=== PATIENT | male | born 1955 | race Caucasian/White ===

== ENCOUNTER 2019-01-07 09:40 | Inpatient (IN) | payer OTHER ==
[~2019-01-07] VITALS: Ht 154.9 cm; Wt 75.7 kg
[2019-01-07 09:57] VITALS: BP 133/68
--- NOTE | 2019-01-07 10:04 | NUR ---
PT AMBULATED TO ER BED 02
--- NOTE | 2019-01-07 10:13 | NUR ---
DR. JAMISON AT BEDSIDE TO EVALUATE PT.
--- NOTE | 2019-01-07 10:31 | NUR ---
LAB AT BEDSIDE TO DRAW BLOOD. EKG IN PROGRESS.
--- NOTE | 2019-01-07 10:35 | NUR ---
PCXR AT BEDSIDE
--- NOTE | 2019-01-07 10:44 | NUR ---
PT SLOVENIAN SPEAKER, A&OX4M, BREATHING EVEN AND UNLABORED. NSR ON MONITOR, SKIN WARM, PINK, AND DRY. C/O INTERMITTENT LOW BACK PAIN AND GENERALIZED BODY ACHES, SUBJECTIVE FEVER, AND CHILLS X 8 DAYS. DENIES N/V/D. NO CP/SOB.
[2019-01-07 10:49] LABS: BASOPHILS % (AUTO) 0.1 % (0.0-2.0); EOSINOPHILS % (AUTO) 0.2 % (0.0-4.0); HEMATOCRIT 32.3 % (36-52); HEMOGLOBIN 10.9 g/dL (12.0-18.0); LYMPHOCYTES # (AUTO) 1.5 K/uL (2.0-11.5); LYMPHOCYTES % (AUTO) 7.6 % (20.5-51.1); MEAN CORPUSCULAR HEMOGLOBIN 29 pg (27-31); MEAN CORPUSCULAR HGB CONC 34 g/dL (33-37); MEAN CORPUSCULAR VOLUME 86.8 fL (80-94); MONOCYTES # (AUTO) 1.1 K/uL (0.8-1.0); MONOCYTES % (AUTO) 5.5 % (1.7-9.3); NEUTROPHILS # (AUTO) 17.4 K/uL (1.8-7.7); NEUTROPHILS % (AUTO) 86.6 % (42.2-75.2); PLATELET COUNT (AUTO) 398 K/uL (140-450); RED BLOOD CELL COUNT(AUTO) 3.73 MIL/uL (4.20-6.10); RED CELL DISTRIBUTION WIDTH 13.3 % (11.6-13.7); WHITE BLOOD COUNT (AUTO) 20.1 K/uL (4.8-10.8)
[2019-01-07] MEDS ORDERED: KETOROLAC 60 MG/2 ML VIAL IM ONE (10:50)
[2019-01-07 10:54] LABS: APPEARANCE,URINE CLEAR (CLEAR); BILIRUBIN,URINE NEGATIVE (NEGATIVE); BLOOD, URINE TRACE-L (NEGATIVE); COLOR,URINE YELLOW (YELLOW); LEUKOCYTE ESTERASE ,URINE NEGATIVE (NEGATIVE); NITRITE, URINE NEGATIVE (NEGATIVE); UGLUCOSE NEGATIVE (NEGATIVE)
[2019-01-07 11:14] LABS: RBC,URINE 0-5 /HPF (0-5); WBC,URINE 0-5 /HPF (0-5)
[2019-01-07] MEDS ORDERED: AZITHROMYCIN 500 MG in DEXTROSE 5% 250 ML IV ONE (11:15)
[2019-01-07] MEDS ORDERED: NACL 0.9% 1,000 ML IV ONE (11:15)
[2019-01-07] MEDS ORDERED: OSELTAMIVIR PHOSPHATE 75 MG CAP PO ONE (11:20)
[2019-01-07] MEDS ORDERED: cefTRIAXone 1,000 MG VIAL ONE (11:43)
[2019-01-07] MEDS ORDERED: HYDROcodone/APAP 7.5/325 MG 1 TAB PO PRN (11:45)
[2019-01-07] MEDS ORDERED: ONDANSETRON 4 MG/2 ML VIAL IVP PRN (11:45)
[2019-01-07] MEDS: ACETAMINOPHEN 325 MG TAB PO PRN (12:05)
--- NOTE | 2019-01-07 12:08 | NUR ---
PT HAS BEEN MEDICATED FOR CARRILLO PAIN 02/10
[2019-01-07] MEDS ORDERED: BACL10TA4 PO (12:10)
[2019-01-07] MEDS ORDERED: AMOX500C25 PO (12:12)
[2019-01-07] MEDS ORDERED: IBUP200C97 PO (12:12)
--- NOTE | 2019-01-07 12:18 | NUR ---
HEADACHE PAIN DECREASED 2/10. BREATHING EVEN AND UNLABORED. LUNG SOUNDS CTAB, NSR ON MONITOR.
[2019-01-07 12:26] LABS: ALBUMIN 2.4 g/dL (3.4-5.0); ANION GAP 11.4 (8-16); CARBON DIOXIDE 25.2 mmol/L (21-32); CREATININE 0.8 mg/dL (0.7-1.3); POTASSIUM 3.6 mmol/L (3.5-5.1); TOTAL BILIRUBIN 0.3 mg/dL (0.0-1.0)
[2019-01-07] MEDS ORDERED: AZITHROMYCIN 500 MG INJ VIAL IV ONE (12:58)
[2019-01-07 13:15] VITALS: BP 127/46
--- NOTE | 2019-01-07 13:15 | NUR ---
Patient will be admitted to care of DR. DIEZ. Admited to TELE. Will go to room 125A. Belongings list completed. Report to CHARGE NURSE MICHEL ASTUDILLO.
--- NOTE | 2019-01-07 13:15 | NUR ---
PATIENT WAS TRANSFERRED FROM ED IN [facility]. REPORT WAS GIVEN AT BEDSIDE. VS WAS TAKEN. MRSA WAS SWABBED. LAB TECH WAS PLACED. PATIENT WAS AWAKE, ALERT. RESPIRATION EVEN, UNLABOR ON 2L NC. SKIN DRY AND WARM. IV PATENT AND INTACT. DENIED PAIN, SOB, N/V AT THIS TIME. PATIENT WAS ORIENTED TO ROOM, STAFF, AND CALL LIGHT. PLAN OF CARE WAS DISCUSSED WITH PATIENT. BED AT LOW POSITION, SIDE RAILS UP. CALL LIGHT WITHIN REACH.
[2019-01-07] MEDS: NACL 0.9% 1,000 ML IV SCH (13:35)
[2019-01-07 13:56] LABS: PROTHROMBIN TIME 11.1 secs (10.8-13.4)
[2019-01-07 14:05] LABS: BARBITURATE, URINE NEG. ng/ml (NEG <=200); BENZODIAZEPINE, URINE NEG. ng/mL (NEG <=200); CANNABINOID, URINE NEG. ng/mL (NEG <=50); COCAINE, URINE NEG. ng/mL (NEG <=300); OPIATE, URINE NEG. ng/mL (NEG <=2000); PHENCYCLIDINE SCREEN,URINE NEG. ng/mL (NEG <=25)
[2019-01-07 14:14] LABS: FREE T4 (FREE THYROXINE) 1.11 ng/dL (0.76-1.46); MAGNESIUM 1.8 mg/dL (1.8-2.4); PHOSPHORUS 3.4 mg/dL (2.5-4.9); THYROID STIMULATING HORMONE 1.47 uIU/mL (0.34-3.74)
[2019-01-07] MEDS ORDERED: ALBUTEROL SULFATE/IPRATROPIU 3 ML SOL IH PRN (15:20)
--- NOTE | 2019-01-07 15:45 | NUR ---
PATIENT WAS AWAKE, ALERT. RESPIRATION EVEN, UNLABOR ON 2L NC. DENIED PAIN, SOB AT THIS TIME. MD WAS AT BEDSIDE. CALL LIGHT WITHIN REACH
[2019-01-07 16:00] VITALS: BP 106/53
--- NOTE | 2019-01-07 16:56 | NUR ---
PATIENT WAS PLACED ON ROOM AIR, SPO2 94%. WILL CONTINUE TO MONITOR
--- NOTE | 2019-01-07 18:09 | NUR ---
PATIENT WAS AWAKE, ALERT, EATING DINNER COMFORTABLY. RESPIRATION EVEN, UNLABOR ON ROOM AIR. IV PATENT AND INTACT. NO DISTRESS NOTED AT THIS TIME
--- NOTE | 2019-01-07 19:22 | NUR ---
ENDORSEMENT GIVEN TO DEPOSIT REFUND CLERK NURSE. PATIENT IS STABLE AT THIS TIME.
--- NOTE | 2019-01-07 19:23 | NUR ---
RECEIVED BEDSIDE REPORT FROM FARIDA PEARSON. PT IS AAOX4. MAORI SPEAKING. AT BEDSIDE. PT ON ROOM AIR. RESPIRATIONS ARE EQUAL AND UNLABORED. SKIN INTACT. PATIENT IS AMBULATORY. IV ON L HAND 22 IVF PER ORDERS. PLAN OF CARE DISCUSSED WITH PATIENT. CALL LIGHT WITHIN REACH.
--- NOTE | 2019-01-07 19:25 | NUR ---
RECEIVED BEDSIDE REPORT FROM FARIDA PEARSON. PT IS AAO X4. ON ROOM AIR RESPIRATIONS ARE EQUAL AND UNLABORED. PATIENT DX LEFT HUMERUS FX. ARM IS PATRICK WRAPPED. CAP REFILL < 3SEC. PT TO BE NPO AFTER MIDNIGHT. PT SURGERY TOMORROW. PER NURSE NO ORDER FOR CONSENT SURGERY WAS NOT SPECIFIC. PT RECEIVED ONE UNIT OF BLOOD TODAY. SKIN INTACT. OCCULT BLOOD PENDING NO BM TODAY. IV ON R HAND 22G AND RAC 22G IVF PER ORDERS. PLAN OF CARE DISCUSSED. WILL CONTINUE TO MONITOR. Addendum: 01/07/19 at 1934 by Kellen Junior RN WRONG PATIENT.
[2019-01-07 20:00] VITALS: BP 100/54
[2019-01-07] MEDS: DOCUSATE SODIUM 100 MG GELCAP PO SCH (20:09)
--- NOTE | 2019-01-07 20:09 | NUR ---
SCHEDULED MEDICATIONS GIVEN. VITAL SIGNS ARE WITHIN NORMAL LIMITS. WILL CONTINUE TO MONITOR.
--- NOTE | 2019-01-07 22:00 | NUR ---
PATIENT IS SLEEPING COMFORTABLY IN BED. RESPIRATIONS ARE EQUAL AND UNLABORED. SAFETY MEASURES ARE IN PLACE. CALL LIGHT WITHIN REACH.
[2019-01-08] VITALS: BP 112/47
--- NOTE | 2019-01-08 00:26 | NUR ---
VITAL SIGNS ARE WITHIN NORMAL LIMITS. 112/47 HR 67 95% ON ROOM AIR. ALL NEEDS MET AT THIS TIME. CALL LIGHT WITHIN REACH.
--- NOTE | 2019-01-08 02:15 | NUR ---
PATIENT SLEEPING IN BED. NO S/S OF DISTRESS. RESPIRATION EQUAL AND UNLABORED. CALL LIGHT WITHIN REACH.
[2019-01-08 04:00] VITALS: BP 128/65
--- NOTE | 2019-01-08 04:10 | NUR ---
VITAL SIGNS ARE STABLE. PT DENIES CHEST OR SOB. CALL LIGHT WITHIN REACH.
[2019-01-08] MEDS: NACL 0.9% 1,000 ML IV SCH (06:50)
[2019-01-08 06:57] LABS: BASOPHILS % (AUTO) 0.3 % (0.0-2.0); EOSINOPHILS # (AUTO) 0.1 K/uL (0-0.4); EOSINOPHILS % (AUTO) 0.5 % (0.0-4.0); HEMATOCRIT 30.7 % (36-52); HEMOGLOBIN 10.4 g/dL (12.0-18.0); LYMPHOCYTES # (AUTO) 1.3 K/uL (2.0-11.5); LYMPHOCYTES % (AUTO) 9.2 % (20.5-51.1); MEAN CORPUSCULAR HEMOGLOBIN 30 pg (27-31); MEAN CORPUSCULAR HGB CONC 34 g/dL (33-37); MEAN CORPUSCULAR VOLUME 87.4 fL (80-94); MONOCYTES # (AUTO) 0.9 K/uL (0.8-1.0); MONOCYTES % (AUTO) 6.6 % (1.7-9.3); NEUTROPHILS # (AUTO) 11.7 K/uL (1.8-7.7); NEUTROPHILS % (AUTO) 83.4 % (42.2-75.2); PLATELET COUNT (AUTO) 406 K/uL (140-450); RED BLOOD CELL COUNT(AUTO) 3.52 MIL/uL (4.20-6.10); RED CELL DISTRIBUTION WIDTH 13.6 % (11.6-13.7)
--- NOTE | 2019-01-08 07:16 | NUR ---
GAVE BEDSIDE REPORT TO CHRISTA PEARSON. PT ENDORSED IN STABLE CONDITION.
--- NOTE | 2019-01-08 07:20 | NUR ---
PT REPORT RECEIVED AT BEDSIDE FROM BLEACHER OPERATOR NURSE RENEE. PT IS AWAKE AND ALERT, NO S/S OF ANY ACUTE DISTRESS OR SOB. PT IS INDONESIAN SPEAKING ONLY. PT IS ON ROOM AIR, SKIN INTACT. IV SITE NOTED ON THE L FA, 20 G, INFUSING NS 50 ML/HR. PT IS AMBULATORY AND NOT A FALL RISK. PT IS ON A REGULAR DIET. CALL LIGHT IS WITHIN REACH, WILL CONTINUE TO MONITOR.
[2019-01-08 07:40] LABS: ANION GAP 11.9 (8-16); CARBON DIOXIDE 24.3 mmol/L (21-32); CREATININE 0.6 mg/dL (0.7-1.3); MAGNESIUM 1.8 mg/dL (1.8-2.4); PHOSPHORUS 2.8 mg/dL (2.5-4.9); POTASSIUM 4.2 mmol/L (3.5-5.1)
[2019-01-08 07:48] LABS: CHOL/HDL RATIO 4.5 (1-4.5)
[2019-01-08 08:00] VITALS: BP 145/67
--- NOTE | 2019-01-08 08:28 | NUR ---
PATIENT HAS BEEN SCREENED AND CATEGORIZED HIGH NUTRITION RISK. PATIENT WILL BE SEEN WITHIN 1-2 DAYS OF ADMISSION. 01/08/19-01/09/[address]
[2019-01-08] MEDS: PANTOPRAZOLE 40 MG INJ VIAL IVP SCH (10:08)
[2019-01-08] MEDS: DOCUSATE SODIUM 100 MG GELCAP PO SCH ×2 (10:08→20:00)
--- NOTE | 2019-01-08 10:16 | NUR ---
SCHEDULED AM MEDS ADMINISTERED. PT TOLERATED WELL.
--- NOTE | 2019-01-08 10:41 | NUR ---
SPUTUM COLLECTED AND TAKEN TO LAB PER MD ORDER.
[2019-01-08 12:00] VITALS: BP 136/62
[2019-01-08 12:12] LABS: FOLIC ACID 5.2 ng/mL (>3.0)
--- NOTE | 2019-01-08 12:37 | NUR ---
PT EATING LUNCH. NO S/S OF ANY ACUTE DISTRESS AT THIS TIME. WILL CONTINUE TO MONITOR.
[2019-01-08] MEDS: AZITHROMYCIN 250 MG in DEXTROSE 5% 250 ML IV SCH (13:45)
--- NOTE | 2019-01-08 13:51 | NUR ---
01/08/19 RD INITIAL ASSESSMENT COMPLETED PLEASE REFER TO NUTRITION ASSESSMENT UNDER CARE ACTIVITY FOR ESTIMATED NUTRITIONAL NEEDS. 1. CONTINUE REGULAR DIET TOLERATED 2. RD PROVIDED EDUCATION FOR WEIGHT MANAGEMENT AND EDUCATIONAL HANDOUT WITH MENU SAMPLES. PT ACCEPTED 3. RD TO FOLLOW-UP 5-7 DAYS, LOW RISK RAQUEL RANDOLPH, RD
[2019-01-08 16:00] VITALS: BP 124/60
--- NOTE | 2019-01-08 18:05 | NUR ---
PT'S RELATIVES VISITING AT BEDSIDE. PT EATING DINNER AND NO ACUTE DISTRESS OR SOB NOTED. WILL CONTINUE TO MONITOR.
--- NOTE | 2019-01-08 19:17 | NUR ---
RECEIVED BEDSIDE REPORT FROM CHRISTA PERASON. PT IS AAOX4. CAMBODIAN SPEAKING. AND SON AT BEDSIDE. PT ON ROOM AIR. RESPIRATIONS ARE EQUAL AND UNLABORED. SKIN INTACT. PATIENT IS AMBULATORY. IV ON L HAND 22 IVF PER ORDERS. PLAN OF CARE DISCUSSED WITH PATIENT. CALL LIGHT WITHIN REACH.
--- NOTE | 2019-01-08 19:20 | NUR ---
PT ENDORSED TO BLASTING ENTRY SPECIALIST NURSE IN STABLE CONDITION.
[2019-01-08 20:00] VITALS: BP 129/54
--- NOTE | 2019-01-08 20:00 | NUR ---
VITAL SIGNS ARE WITHIN NORMAL LIMITS: 129/54, 70, 94%, 98.5. SCHEDULED MEDICATIONS GIVEN. ANSWERED ALL QUESTIONS AND CONCERNS. SAFETY MEASURES IN PLACE. CALL LIGHT WITHIN REACH.
--- NOTE | 2019-01-08 22:00 | NUR ---
PATIENT IS RESTING COMFORTABLY IN BED. NO S/S OF DISTRESS NOTED. ALL NEEDS MET AT THIS TIME. CALL LIGHT WITHIN REACH. WILL CONTINUE TO MONITOR.
[2019-01-09] VITALS: BP 131/70
--- NOTE | 2019-01-09 00:15 | NUR ---
VITAL SIGNS ARE WITHIN NORMAL LIMITS. NO S/S OF DISTRESS. CALL LIGHT WITHIN REACH.
--- NOTE | 2019-01-09 02:22 | NUR ---
PATIENT IS SLEEPING COMFORTABLY IN BED. RESPIRATIONS ARE EQUAL AND UNLABORED. SAFETY MEASURES ARE IN PLACE. WILL CONTINUE TO MONITOR.
[2019-01-09] MEDS: NACL 0.9% 1,000 ML IV SCH (03:25)
--- NOTE | 2019-01-09 04:00 | NUR ---
VITAL SIGNS ARE WITHIN NORMAL LIMITS. PT DENIES ANY PAIN. ALL NEEDS MET AT THIS TIME. SAFETY MEASURES ARE IN PLACE. WILL CONTINUE TO MONITOR.
[2019-01-09 04:01] VITALS: BP 154/79
[2019-01-09 06:54] LABS: BASOPHILS % (AUTO) 0.1 % (0.0-2.0); EOSINOPHILS % (AUTO) 0.2 % (0.0-4.0); HEMATOCRIT 31.8 % (36-52); HEMOGLOBIN 10.7 g/dL (12.0-18.0); LYMPHOCYTES # (AUTO) 0.9 K/uL (2.0-11.5); LYMPHOCYTES % (AUTO) 5.5 % (20.5-51.1); MEAN CORPUSCULAR HEMOGLOBIN 29 pg (27-31); MEAN CORPUSCULAR HGB CONC 34 g/dL (33-37); MONOCYTES # (AUTO) 0.9 K/uL (0.8-1.0); MONOCYTES % (AUTO) 5.5 % (1.7-9.3); NEUTROPHILS # (AUTO) 14.6 K/uL (1.8-7.7); NEUTROPHILS % (AUTO) 88.7 % (42.2-75.2); PLATELET COUNT (AUTO) 421 K/uL (140-450); RED BLOOD CELL COUNT(AUTO) 3.66 MIL/uL (4.20-6.10); RED CELL DISTRIBUTION WIDTH 13.4 % (11.6-13.7); WHITE BLOOD COUNT (AUTO) 16.4 K/uL (4.8-10.8)
--- NOTE | 2019-01-09 07:41 | NUR ---
GAVE BEDSIDE REPORT TO BRANDON PEARSON. PT ENDORSED IN STABLE CONDITION.
[2019-01-09 07:42] LABS: ANION GAP 13.2 (8-16); CARBON DIOXIDE 24.8 mmol/L (21-32); CREATININE 0.7 mg/dL (0.7-1.3)
--- NOTE | 2019-01-09 07:42 | NUR ---
RECEIVED REPORT FROM SENIOR DATA WAREHOUSE ARCHITECT NURSE. PT SITTING UP IN BED WITH NO COMPLAINTS, REPORTED PAIN, OR OBVIOUS SIGNS OF DISTRESS. IV SITE INTACT AND ASYMPTOMATIC.
[2019-01-09 07:54] LABS: MAGNESIUM 1.9 mg/dL (1.8-2.4); PHOSPHORUS 2.6 mg/dL (2.5-4.9)
[2019-01-09 08:00] VITALS: BP 138/64
--- NOTE | 2019-01-09 08:05 | NUR ---
PT EATING BREAKFAST, CHECKED TEMP WITH TEMPORAL THERMOMETER, 100.8F, AXILLARY TEMP 100.7. ASKED PT IF HE FEELS FEBRILE, PT DENIES. WILL GIVE TYLENOL PER MD ORDER.
[2019-01-09] MEDS: DOCUSATE SODIUM 100 MG GELCAP PO SCH ×2 (08:22→20:50)
[2019-01-09] MEDS: PANTOPRAZOLE 40 MG INJ VIAL IVP SCH (08:22)
[2019-01-09] MEDS: ACETAMINOPHEN 325 MG TAB PO PRN (08:23)
[2019-01-09] MEDS: FERROUS SULFATE 325 MG TABEC PO SCH (08:23)
--- NOTE | 2019-01-09 10:47 | NUR ---
PT SITTING UP IN BED WITH NO COMPLAINTS OF PAIN AND NO OBVIOUS SIGNS OF DISTRESS. PT REQUESTED A HEATED BLANKET WHICH THIS NURSE BROUGHT TO HIM AT THIS TIME.
[2019-01-09 11:56] VITALS: BP 114/55
[2019-01-09] MEDS: AZITHROMYCIN 250 MG in DEXTROSE 5% 250 ML IV SCH (13:05)
--- NOTE | 2019-01-09 14:20 | NUR ---
PT SITTING UP IN BED WATCHING TV WITH FAMILY AT BEDSIDE. NO OBVIOUS SIGNS OF DISTRESS AT THIS TIME, PT DENIES ANY PAIN OR REQUESTS.
--- NOTE | 2019-01-09 15:46 | NUR ---
PT ASLEEP IN BED WITH BREATHING EQUAL AND UNLABORED. FAMILY AT BEDSIDE. NO OBVIOUS SIGNS OF DISCOMFORT SUCH FACIAL GRIMACING.
[2019-01-09 15:50] VITALS: BP 100/51
--- NOTE | 2019-01-09 19:10 | NUR ---
ENDORSED PT TO MANUFACTURING QUALITY TECHNICIAN RN, PT RESTING IN BED.
--- NOTE | 2019-01-09 19:30 | NUR ---
RECEIVED BEDSIDE REPORT FROM DAY SHIFT NURSE. PATIENT AWAKE, ALERT, AND COOPERATIVE. MALAYSIAN SPEAKING. RESPIRATION EVEN UNLABORED ON ROOM AIR. SKIN IS WARM AND DRY. IV PATENT AND INTACT. PATIENT IS AMBULATORY AND ABLE TO MAKE NEEDS KNOWN. PLAN OF CARE WAS DISCUSSED. ALL SAFETY MEASURES IN PLACE. BED IS AT LOW POSITION. CALL LIGHT WITHIN REACH AND VERBALIZES ITS USE. WILL CONTINUE TO MONITOR
[2019-01-09 20:00] VITALS: BP 104/60
--- NOTE | 2019-01-09 20:00 | NUR ---
INITIAL ASSESSMENT DONE. VITALS WERE TAKEN. PATIENT CONDITION STABLE. DENIES PAIN. WILL CONTINUE TO MONITOR
--- NOTE | 2019-01-09 21:00 | NUR ---
ALL SCHEDULED MEDS WERE GIVEN AND TOLERATED THEM WELL. NO ASE NOTED. WILL CONTINUE TO MONITOR.
--- NOTE | 2019-01-09 22:00 | NUR ---
PATIENT IS ON THE PHONE. NO DISTRESS NOTED. WILL CONTINUE TO MONITOR
[2019-01-10] VITALS: BP 120/79
--- NOTE | 2019-01-10 | NUR ---
VITALS WERE TAKEN. PATIENT CONDITION STABLE. NO DISTRESS NOTED. WILL CONTINUE TO MONITOR
[2019-01-10] MEDS: NACL 0.9% 1,000 ML IV SCH (00:15)
--- NOTE | 2019-01-10 02:00 | NUR ---
PATIENT SLEEPING RESPIRATION EVEN UNLABORED ON ROOM AIR. NO DISTRESS NOTED. WILL CONTINUE TO MONITOR
[2019-01-10 04:00] VITALS: BP 128/67
--- NOTE | 2019-01-10 04:00 | NUR ---
VITALS WERE TAKEN. PATIENT CONDITION STABLE. NO DISTRESS NOTED. WILL CONTINUE TO MONITOR
[2019-01-10] MEDS ORDERED: guaiFENesin 600 MG TABER PO SCH ×3 (05:45→21:00)
[2019-01-10 06:45] LABS: BASOPHILS % (AUTO) 0.3 % (0.0-2.0); EOSINOPHILS # (AUTO) 0.1 K/uL (0-0.4); EOSINOPHILS % (AUTO) 1.1 % (0.0-4.0); HEMATOCRIT 33.6 % (36-52); HEMOGLOBIN 11.2 g/dL (12.0-18.0); LYMPHOCYTES # (AUTO) 1.2 K/uL (2.0-11.5); LYMPHOCYTES % (AUTO) 10.5 % (20.5-51.1); MEAN CORPUSCULAR HEMOGLOBIN 29 pg (27-31); MEAN CORPUSCULAR HGB CONC 33 g/dL (33-37); MEAN CORPUSCULAR VOLUME 87.9 fL (80-94); MONOCYTES # (AUTO) 0.8 K/uL (0.8-1.0); MONOCYTES % (AUTO) 6.3 % (1.7-9.3); NEUTROPHILS # (AUTO) 9.7 K/uL (1.8-7.7); NEUTROPHILS % (AUTO) 81.8 % (42.2-75.2); PLATELET COUNT (AUTO) 433 K/uL (140-450); RED BLOOD CELL COUNT(AUTO) 3.82 MIL/uL (4.20-6.10); RED CELL DISTRIBUTION WIDTH 13.3 % (11.6-13.7); WHITE BLOOD COUNT (AUTO) 11.9 K/uL (4.8-10.8)
[2019-01-10 06:58] LABS: ANION GAP 9.7 (8-16); CARBON DIOXIDE 26.8 mmol/L (21-32); CREATININE 0.7 mg/dL (0.7-1.3); POTASSIUM 4.5 mmol/L (3.5-5.1)
[2019-01-10 07:02] LABS: MAGNESIUM 2.1 mg/dL (1.8-2.4); PHOSPHORUS 3.4 mg/dL (2.5-4.9)
--- NOTE | 2019-01-10 07:24 | NUR ---
ENDORSED PATIENT TO DAY SHIFT NURSE FOR CONTINUITY OF CARE. PATIENT CONDITION STABLE.
--- NOTE | 2019-01-10 07:26 | NUR ---
RECEIVED ENDORSEMENT FROM MODEL TECHNICIAN NURSE. PT IS STABLE, RESPIRATIONS EVEN AND UNLABORED ON ROOM AIR. LEFT FA 20 G IV NOTED, INTACT, PATENT, AND INFUSING IVF. DENIES PAIN AT THIS TIME. PLAN OF CARE WAS REVIEWED WITH PT. PT VERBALIZED UNDERSTANDING. SAFETY MEASURES IN PLACE, CALL LIGHT WITHIN REACH. WILL CONTINUE TO MONITOR.
[2019-01-10 08:00] VITALS: BP 138/74
[2019-01-10] MEDS: DOCUSATE SODIUM 100 MG GELCAP PO SCH (08:15)
[2019-01-10] MEDS: ACETAMINOPHEN 325 MG TAB PO PRN (08:15)
[2019-01-10] MEDS: FERROUS SULFATE 325 MG TABEC PO SCH (08:16)
[2019-01-10] MEDS: PANTOPRAZOLE 40 MG INJ VIAL IVP SCH (08:16)
[2019-01-10] MEDS ORDERED: LACT10CA1 PO (08:47)
[2019-01-10] MEDS ORDERED: DOXY100C9 PO (08:47)
[2019-01-10] MEDS ORDERED: AMOX-999 PO (08:47)
[2019-01-10 12:00] VITALS: BP 122/48
[2019-01-10] MEDS: AZITHROMYCIN 250 MG in DEXTROSE 5% 250 ML IV SCH (13:17)
--- NOTE | 2019-01-10 13:30 | NUR ---
GAVE PT D/C INSTRUCTIONS IN [place] ON MEDICATIONS AND FOLLOW UP APPT. PT VERBALIZED UNDERSTANDING AND HAD NO FURTHER QUESTIONS. ADMINISTERED LAST IV ABX.
--- NOTE | 2019-01-10 14:45 | NUR ---
D/C IV, TIP INTACT, PRESSURE APPLIED, MINIMAL BLEEDING. PT STABLE WITH NO SIGNS OF DISTRESS. DENIES PAIN AT THIS TIME. PT DRESSED SELF AND WALKED WITH PT TO [facility]. WRIST BAND REMOVED. PT TOOK ALL HIS BELONGINGS.
== END 2019-01-10 14:45 | disposition home or self-care (01) | DRG 193 ==
LOC: MED 09:40 → MMU 11:48
PROVIDERS: ADMIT General Practice; ATTEND General Practice
DX: J18.9 Pneumonia, unspecified organism (principal); E43 Unspecified severe protein-calorie malnutrition; E87.1 Hypo-osmolality and hyponatremia; N39.0 Urinary tract infection, site not specified; R09.02 Hypoxemia; D64.9 Anemia, unspecified; M19.90 Unspecified osteoarthritis, unspecified site; E66.9 Obesity, unspecified; E78.5 Hyperlipidemia, unspecified; E11.65 Type 2 diabetes mellitus with hyperglycemia; Z68.31 Body mass index [BMI] 31.0-31.9, adult; Z87.891 Personal history of nicotine dependence
CPT/HCPCS: 36415; 36600; 71045; 80048; 80053; 80305; 81001; 82150; 82607; 82728; 82746; 82803; 83036; 83540; 83605; 83690; 83735; 83880; 84100; 84439; 84443; 84484; 85025; 85045; 85610; 85730; 87040; 87070; 87081; 87086; 87205; 87804; 93005; 96372; 99285; C9113; J0456; J0696; J1644; J1885; J7030; J7060; Q0092

== ENCOUNTER 2021-05-05 16:07 | Emergency (ER) | payer OTHER ==
[~2021-05-05] VITALS: Ht 167.6 cm; Wt 76.2 kg
[~2021-05-05 16:07] MED LIST: AMOX-999 PO; BACL10TA4 PO; DOXY-690 PO; IBUP200C97 PO; LACT10CA1 PO
--- NOTE | 2021-05-05 16:17 | NUR ---
CALLED NAME OUT TO [facility], NO RESPONSE
[2021-05-05 16:22] VITALS: BP 156/74
[2021-05-05] MEDS ORDERED: FLUORESCEIN OPTH STRIP 1 MG OP ONE (17:30)
[2021-05-05] MEDS ORDERED: TETRACAINE HCL/PF 0.5% OPTH 4 ML BTL OP ONE (17:30)
[2021-05-05] MEDS ORDERED: TETRACAINE HCL/PF 0.5% OPTH 4 ML BTL ONE (19:23)
[2021-05-05] MEDS ORDERED: FLUORESCEIN OPTH STRIP 1 MG ONE (19:23)
[2021-05-05] MEDS ORDERED: TOMOMETER 1 DEV DEV MC ONE (19:46)
--- NOTE | 2021-05-05 21:20 | NUR ---
65 yo m bib self with c/c of r eye pain 7/10 s/p getting hit in the eye with fruit while working on 04/28. denies vision changes, stated his eye is tearful. pt stated he went to clinic and was given eye drops in which did not help. pt took tylenol for pain also with little relief. denies hx and allerg.
[2021-05-05] MEDS ORDERED: acetaZOLAMIDE sodium 250 MG in NACL 0.9% 50 ML IV SCH (21:50)
[2021-05-05] MEDS ORDERED: TIMOLOL OP 0.5% 5 ML BTL OP ONE (22:30)
--- NOTE | 2021-05-05 22:55 | NUR ---
AMBULATED TO WITH STEADY GAIT.
[2021-05-05] MEDS ORDERED: PILOCARPINE 2% OP STA (23:33)
--- NOTE | 2021-05-06 00:28 | NUR ---
LATE NOTE. CONTACTED [facility] FOR EYE MEDICATION. STATED PHARM IS HERE TO PREP. WILL GIVE WHEN READY. PT IS IN STABLE CONDITION. VSS. BED LOCKED IN LOWEST POSITION, SIDE RAILS X1.
[2021-05-06] MEDS ORDERED: LORazepam 1 MG TAB PO ONE (00:40)
--- NOTE | 2021-05-06 00:56 | NUR ---
provided pt with food per request.
[2021-05-06] MEDS ORDERED: TOMOMETER 1 DEV DEV MC ONE (03:00)
--- NOTE | 2021-05-06 03:00 | NUR ---
pt is sleeping, equal rise and fall of chest wall. vss. opens eyes to sound. bed locked in lowest position, side rails x2.
[2021-05-06] MEDS ORDERED: TETRACAINE HCL/PF 0.5% OPTH 4 ML BTL ONE (03:01)
[2021-05-06] MEDS ORDERED: TETRACAINE HCL/PF 0.5% OPTH 4 ML BTL OP ONE (03:05)
--- NOTE | 2021-05-06 03:24 | NUR ---
iop reduced to 30 from 60.
[2021-05-06] MEDS ORDERED: LATA2.5S14 OP (03:32)
[2021-05-06 03:58] VITALS: BP 129/60
--- NOTE | 2021-05-06 03:58 | NUR ---
Patient discharged with v/s stable. Written and verbal after care instructions given and explained. Patient alert, oriented and verbalized understanding of instructions. Ambulatory with steady gait. All questions addressed prior to discharge. ID band removed. Patient advised to follow up with PMD. Rx of latanoprost given. Patient educated on indication of medication including possible reaction and side effects. Opportunity to ask questions provided and answered.
[2021-05-06] MEDS ORDERED: PILOCARPINE 2% OP SCH (09:00)
== END 2021-05-06 03:58 | disposition home or self-care (01) ==
LOC: MED 16:07
DX: H40.2214 Chronic angle-closure glaucoma, right eye, indeterminate stage (principal)
CPT/HCPCS: 96365; 99284; J1120